=== PATIENT | male | born 1960 | race Asian ===

== ENCOUNTER 2016-11-11 12:12 | Inpatient (IN) | payer OTHER ==
[~2016-11-11] VITALS: Ht 188 cm; Wt 95.8 kg
[2016-11-11] VITALS (10 sets, daily range): BP systolic 136–167; BP diastolic 91–113; TEMP 97.9–99; Ht 188 cm; Wt 95.8 kg
[2016-11-11 13:23] LABS: PLATELET COUNT 248 K/uL (142-355)
[2016-11-11 13:36] LABS: POTASSIUM 4.2 mmol/L (3.6-5.2)
[2016-11-11 18:29] LABS: POTASSIUM 3.9 mmol/L (3.6-5.2)
[2016-11-12] VITALS (15 sets, daily range): BP systolic 103–143; BP diastolic 65–85; TEMP 97–98.8
[2016-11-12 00:18] LABS: POTASSIUM 3.4 mmol/L (3.6-5.2)
[2016-11-12 06:12] LABS: PLATELET COUNT 188 K/uL (142-355)
[2016-11-12 06:26] LABS: POTASSIUM 3.3 mmol/L (3.6-5.2); SODIUM 131 mmol/L (136-145)
[2016-11-13] VITALS: BP 128/84; TEMP 98.1
[2016-11-13 04:00] VITALS: BP 116/64; TEMP 97.1
[2016-11-13 06:28] LABS: PLATELET COUNT 161 K/uL (142-355)
[2016-11-13 06:48] LABS: POTASSIUM 3.1 mmol/L (3.6-5.2); SODIUM 129 mmol/L (136-145)
[2016-11-13 08:00] VITALS: BP 136/61; TEMP 98
[2016-11-13 12:00] VITALS: BP 112/63; TEMP 97.8
[2016-11-13 16:00] VITALS: BP 118/63; TEMP 98.4
[2016-11-13 20:00] VITALS: BP 129/64; TEMP 98.4
[2016-11-14] VITALS: BP 115/57; TEMP 97.7
[2016-11-14 04:00] VITALS: BP 113/56; TEMP 98.3
[2016-11-14 06:06] LABS: PLATELET COUNT 155 K/uL (142-355)
[2016-11-14 07:03] LABS: POTASSIUM 3.3 mmol/L (3.6-5.2); SODIUM 135 mmol/L (136-145)
[2016-11-14 08:20] VITALS: BP 114/61; TEMP 97.9
[2016-11-14 12:00] VITALS: BP 111/63; TEMP 97.9
[2016-11-14 16:00] VITALS: BP 138/88; TEMP 98
== END 2016-11-14 17:00 | disposition home or self-care (01) | DRG 638 ==
LOC: ED 12:12 → ICU 14:00 → MED/SURG 11-12 14:50 → ICU 11-12 14:50 → MED/SURG 11-12 14:50
PROVIDERS: Emergency Medicine
DX: E13.10 Other specified diabetes mellitus with ketoacidosis without coma (principal); E87.1 Hypo-osmolality and hyponatremia; R35.8 Other polyuria; E86.0 Dehydration; E87.6 Hypokalemia; R53.1 Weakness; R63.1 Polydipsia; R25.2 Cramp and spasm
CPT/HCPCS: 36415; 80048; 80053; 81000; 81002; 82948; 82962; 83036; 83735; 84443; 85027; 93005; 96360; 96361; 96372; 99284; J1815; J2405; J3475; J3490